=== PATIENT | male | born 1975 | race Caucasian/White ===

== ENCOUNTER 2016-10-27 20:50 | Emergency (ER) | payer OTHER ==
--- NOTE | ~2016-10-27 | CT71 ---
[facility] A Service of [facility] RADIOLOGY TEXT RESULTS PATIENT: ROBIN MERCEDES SR LOCATION: [facility] : 73 UNIT #: [id number] AGE: [address]: Natalie Thornton MD SEX: M ORDER DR: [id number] [facility]. [place], [place] [address] [id number] MR#: [id number] #: [id number] NAME: ROBIN MERCEDES SR : 1975 SEX: M STUDY DATE/TIME: 10/27/2016 20:27 UNIT: [facility] ROOM: STUDY DESCRIPTION: CT Head Wo Contrast Attending Physician: Natalie Thornton M.D. Ordering Physician: Natalie Thornton M.D. MEDICAL IMAGING REPORT This report is preliminary unless electronic signature is present EXAM Head CT without contrast 10/27/2016 HISTORY Pain in back of head for 3 days. History of seizures. No known injury. TECHNIQUE Axial noncontrast images were obtained from the skull base to the vertex. This CT exam was performed with one or more of the following radiation dose reduction techniques: automatic exposure control, adjustment of mA and/or kV according to patient size, and iterative reconstruction. FINDINGS Ventricular size and configuration are normal. There is no evidence of acute infarct or hemorrhage. There are no extraaxial fluid collections. No mass lesion or mass effect is seen. There are no skull fractures. IMPRESSION Normal noncontrast head CT. Dictated by... Bayron Medina M.D. THIS IS AN ELECTRONICALLY VERIFIED REPORT Bayron Medina M.D. at 10/28/2016 2:14 PM KRT/pcl TD: 10/27/2016 22:41 JOB #: [id number] MEDICAL IMAGING REPORT [facility] A Service of [facility] RADIOLOGY TEXT RESULTS PATIENT: ROBIN MERCEDES SR LOCATION: [facility] : 73 UNIT #: [id number] AGE: [address]: Natalie Thornton MD SEX: M ORDER DR: Page 1 of 1 COPY
[~2016-10-27 20:50] MED LIST: ALBUTEROL17 GM INH; BENZONATATE PO; COMBIVENT INH14.7 GM INH; DILANTIN PO; IBUPROFEN800 MG PO; LEVAQUIN PO; LORTAB 5/500 TA1 TA1 PO; MEDROL DOSEPAK4 MG DOB; PHENOBARB PO; TEGRETOL; VIBRAMYCIN100 M1 PO; VICODIN 5/500 T1 TAB PO; VOLTAREN75 MG PO; WALGREENS PHARM; ZITHROMAX1 G/PKT PO; [UNRECOGNIZED DRUG - REMARK]
== END 2016-10-27 20:57 | disposition home or self-care (01) ==
LOC: CED 20:50
DX: R51 Headache (principal); F17.200 Nicotine dependence, unspecified, uncomplicated; Z88.6 Allergy status to analgesic agent
CPT/HCPCS: 70450; 96372; 99284; J1885